=== PATIENT | female | born 1975 | race Caucasian/White ===

== ENCOUNTER 2017-10-28 14:39 | Outpatient (CLI) | payer OTHER, SELFPAY ==
--- NOTE | 2017-10-28 16:06 | DI.REPORT_ITS ---
SYMPTOM/DIAGNOSIS: POLYARTHRALGIA M25.50 RIGHT HAND: The bones are normally mineralized. No bony erosions are seen. There are no significant degenerative changes. IMPRESSION: Negative right hand. RIGHT WRIST: The bones are normally mineralized. No bony erosions are seen. The carpal alignment appears normal. IMPRESSION: Negative right wrist. PELVIS AND RIGHT HIP: The exam is somewhat limited by the patient's body habitus. Hip joint spaces are well maintained. There is mild spurring at the acetabula as well as at the S-I joints. IMPRESSION: No acute abnormality.
[2017-10-30 10:30] LABS: Rheumatoid Factor 8 IU/mL (<12.5)
== END 2017-10-28 14:40 ==
PROVIDERS: PCP Family Medicine; Visit Provider Family Medicine
DX: M79.641 Pain in right hand (principal); M25.531 Pain in right wrist; M25.551 Pain in right hip; R70.0 Elevated erythrocyte sedimentation rate
CPT/HCPCS: 36415; 73110; 73130; 73502; 86431

== ENCOUNTER 2018-09-01 15:53 | Outpatient (CLI) | payer OTHER, SELFPAY ==
[2018-09-01 16:23] LABS: HCT 37.7 % (36.0-46.0); HGB 13.1 g/dL (12.0-15.5); Mean Corp. HGB Concentration 34.7 g/dL (32.0-36.0); Mean Corpuscular Hemoglobin 29.6 pg (27.0-33.0); Mean Corpuscular Volume 85.3 fL (80-95); Mean Platelet Volume 9.7 fL (8.0-11.0); Platelet Count 251 x1000/uL (130-400); RBC 4.42 m/cumm (4.00-5.20); RBC Distribution Width 13.1 % (11.7-14.6); White Blood Cell Count 7.63 k/cumm (4.4-10.8)
[2018-09-01 17:16] LABS: ALT 35 U/L (12-78); AST 26 U/L (15-37); Alkaline Phosphatase 96 U/L (46-116); Anion Gap 10.1 mmol/L (3-11); BUN 15 mg/dL (7-18); Bilirubin, Total 0.5 mg/dL (0.2-1.0); CO2 25.9 mmol/L (21.0-32.0); CREATININE 0.87 mg/dL (0.55-1.02); Calcium 9.4 mg/dL (8.5-10.1); Chloride 100 mmol/L (98-107); Glucose 109 mg/dL (70-100); Magnesium 1.8 mg/dL (1.8-2.4); Potassium 3.8 mmol/L (3.5-5.1); Sodium 136 mmol/L (136-145); TSH 5.72 uIU/mL (0.358-3.74); Total Protein 7.4 g/dL (6.4-8.2)
[2018-09-02 06:23] LABS: Vitamin D 25 Total 23.2 ng/ml (30-100)
== END 2018-09-01 16:13 ==
PROVIDERS: PCP Family Medicine; Visit Provider Registered Nurse
DX: R53.83 Other fatigue (principal); F41.9 Anxiety disorder, unspecified; E03.9 Hypothyroidism, unspecified; N91.2 Amenorrhea, unspecified; E66.9 Obesity, unspecified
CPT/HCPCS: 36415; 80053; 82306; 85027; 83735; 84443

== ENCOUNTER 2018-10-28 10:31 | Outpatient (CLI) | payer OTHER, SELFPAY ==
[2018-10-28 14:06] LABS: TSH 0.13 uIU/mL (0.36-3.74)
== END 2018-10-28 10:51 ==
PROVIDERS: PCP Registered Nurse; Visit Provider Registered Nurse
DX: E03.9 Hypothyroidism, unspecified (principal)
CPT/HCPCS: 36415; 84443

== ENCOUNTER 2019-01-01 04:36 | Emergency (ER) | payer OTHER, SELFPAY ==
[2019-01-01 04:43] VITALS: BP 149/87; PULSE 88; RESP 16; TEMP 36.3; O2SAT 99
--- NOTE | 2019-01-01 04:51 | ED.GENADUL_ITS ---
Discharge Plan Disposition Patient Disposition: HOME Discharge Details Chief Complaint: Orthopedic Clinical Impression: Left shoulder strain Primary Care Provider: SELMA SCANLON ED Provider: Rehan Phillips Home Meds and New Rx's Prescriptions: Continued levothyroxine 125 MCG tablet 125 mcg PO DAILY Qty: 90 RF: 4 ibuprofen 800 MG tablet 800 mg PO TID PRN PRN (Reason: Pain) Qty: 20 RF: 0 acetaminophen [Tylenol] 325 mg Tablet 975 mg PO DIRECTED RF: 0 Discontinued acetaminophen-codeine [Tylenol-Codeine #3] 1 TAB tablet 1 tab PO Q6H PRN PRN (Reason: Pain) Qty: 20 RF: 0 Discharge Instructions Additional Instructions: Continue sling as needed for comfort. May remove and perform range of motion exercises as we discussed 2-3 times per day. Ice to reduce pain and swelling. Continue ibuprofen as needed for discomfort. May use the provided hydrocodone if needed for breakthrough discomfort. Return for worsening discomfort or any other acute concerns. We will refer you to orthopedics for follow-up. Please call the office at [phone] for an appointment time. Medical Decision Making 43-year-old female slipped and fell onto her left arm while getting out of a hot tub 2 days ago. Now with persistent pain despite treatment with lidocaine patch and NSAIDs at home. She has pain with empty can test on exam and would consider strain versus rotator cuff injury. She is referred for x-ray to rule out underlying fracture or malalignment. The radiographs show no evidence of acute bony abnormality. There is nonspecific cortical lucency. We will treat with oral analgesia, sling, and follow-up in orthopedic clinic given the question of rotator cuff injury. [facility] General Mode of arrival: ambulatory . Date/Time Provider Initiated Documentation: 01/01/19 04:37 . Limitations to Documentation: no limitations . Information obtained by: patient . History of Present Illness 43 year old F presents to the emergency department with the chief complaint of Left anterior shoulder pain after slip and fall 2 days ago, described as moderate, Quality is described as dull, and is localized to the left and upper extremity. Patient reports no radiation. Patient started experiencing this hour(s) and it has been constant. Rest improves symptom(s), Movement worsens symptoms . Patient notes no other symptoms.; denies syncope and weakness. Patient did receive the following treatments prior to arrival, NSAID Related Data Home Medications Medication Instructions Recorded Confirmed levothyroxine 125 mcg PO DAILY #90 tab-cap 03/03/16 01/01/19 ibuprofen 800 mg PO TID PRN PRN #20 tablet 06/12/17 01/01/19 acetaminophen [Tylenol] 975 mg PO DIRECTED 01/01/19 01/01/19 Previous Rx's Medication Instructions Recorded ibuprofen 800 mg PO TID PRN PRN #20 tablet 06/12/17 Allergies Allergy/AdvReac Type Severity Reaction Status Date / Time Sulfa (Sulfonamide Allergy Severe eyes were Unverified 01/01/19 04:53 Antibiotics) red and swollen General Stated Complaint: Orthopedic TYLER: 4 Review of Systems Review of Systems Narrative: No other injury. No neck or back pain. No shortness of breath. No numbness or tingling. [facility] Family History Mother No problems noted. Grandfather No problems noted. Social History Smoking/Tobacco Use Status: Never Drug use: Never Substance use type: does not use Do you feel safe at home: Yes Do you feel safe in your relationship?: Yes Exam Narrative Exam Narrative: GEN: awake, alert, oriented 3. Pleasant, well groomed, interactive. HEAD: Normocephalic, atraumatic ENT: Mucous membranes moist, oropharynx unremarkable, External ear exam unremarkable EYES: PERRL, EOMI NECK: Full ROM, no SUMIT, no menigismus CHEST/RESP: Nontender, clear to auscultation bilateral, no wheeze/rhonchi/rales CARDIOVASCULAR: RRR, no murmur, rub jeremiah. 2+ Rad pulse bilateral EXT: Left upper extremity range of motion is limited by pain. Pain is worsened with empty can test. Motor is graded at 5 out of 5 throughout otherwise. Sensation intact. Some mild tenderness of the posterior shoulder above the scapula. No edema, no rash Neuro: Grossly normal neurologic exam, conversant, interactive. Psych: Speech fluent, thoughts congruent, affect normal Course Vital Signs Vital signs: Vital Signs Temperature 36.3 C L 01/01/19 04:43 Pulse 88 01/01/19 04:43 Respiratory Rate 16 01/01/19 04:43 Blood Pressure 149/87 H 01/01/19 04:43 Pulse Oximetry 99 01/01/19 04:43 Temperature 36.3 C L 01/01/19 04:43 Temperature Source Skin 01/01/19 04:43 Pulse 88 01/01/19 04:43 Respiratory Rate 16 01/01/19 04:43 Blood Pressure 149/87 H 01/01/19 04:43 Blood Pressure Position Sitting 01/01/19 04:43 Pulse Oximetry 99 01/01/19 04:43 Oxygen Delivery Method Room Air 01/01/19 04:43 Oxygen Flow Rate 0 01/01/19 04:43 Pain Level 8 01/01/19 04:43
--- NOTE | 2019-01-01 05:19 | DI.RAD_ITS ---
EXAM: XR SHOULDER LT COMPLETE 2+V INDICATION: pain after slip and fall. COMPARISON: No exams were available for comparison TECHNIQUE: 2D digital imaging was performed. FINDINGS: The bony structures are normally mineralized. There is no evidence of a fracture or dislocation. Mil d degenerative changes are evident.
--- NOTE | 2019-01-01 05:28 | DI.VRAD_ITS ---
PROCEDURE INFORMATION: Exam: XR Left Shoulder Exam date and time: 01/01/2019 5:14 AM Clinical history: 43 years old, female; Pain; Shoulder; Left; Additional info: Pain after slip and fall TECHNIQUE: Imaging protocol: XR Left shoulder. Views: 2 or more views. COMPARISON: No relevant prior studies available. FINDINGS: Bones/joints: Small cortical lucency proximal humeral diaphysis only seen in the axillary view. . No significant degenerative change for age. No evidence of acute fracture or malalingment. Soft tissues: Unremarkable. IMPRESSION: No evidence of acute bony abnormality. Nonspecific small cortical lucency proximal humeral diaphysis. Correlate with clinical. Nonemergent MRI scan could be done for further characterization. Dictated and Authenticated by: Francesco Muse MD. Ordering:CARMELO Van MD
[2019-01-01] MEDS: HYDROcodone 5/Acetaminophen 325 TAB PO (05:34)
== END 2019-01-01 05:40 | disposition home or self-care (01) ==
PROVIDERS: Emergency Provider Emergency Medicine; PCP Registered Nurse
DX: S46.912A Strain of unspecified muscle, fascia and tendon at shoulder and upper arm level, left arm, initial encounter (principal); W01.0XXA Fall on same level from slipping, tripping and stumbling without subsequent striking against object, initial encounter
CPT/HCPCS: 99283; 73030

== ENCOUNTER 2019-02-16 11:17 | Outpatient (REF) | payer OTHER, SELFPAY ==
[2019-02-16 22:52] LABS: Hemoglobin A1C 5.2 % (4.5-6.2)
[2019-02-16 22:56] LABS: Glucose 83 mg/dL (74-106); TSH (W/Ref FT4) 2.47 uIU/mL (0.36-3.74)
== END 2019-02-16 11:37 ==
LOC: NCHCN 11:17
PROVIDERS: PCP Registered Nurse; Visit Provider Registered Nurse
DX: E66.9 Obesity, unspecified (principal); R73.9 Hyperglycemia, unspecified; Z83.3 Family history of diabetes mellitus; E03.9 Hypothyroidism, unspecified
CPT/HCPCS: 82947; 83036; 84443

== ENCOUNTER 2020-01-23 18:35 | Emergency (ER) | payer OTHER, SELFPAY ==
[2020-01-23 18:39] VITALS: BP 138/92; PULSE 83; RESP 16; TEMP 36.7; O2SAT 99
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
== END 2020-01-23 19:09 | disposition home or self-care (01) ==
PROVIDERS: Emergency Provider Physician Assistant; PCP Registered Nurse
DX: T23.162A Burn of first degree of back of left hand, initial encounter (principal); X15.3XXA Contact with hot saucepan or skillet, initial encounter
CPT/HCPCS: 99282

== ENCOUNTER 2020-04-18 11:44 | Outpatient (REF) | payer OTHER, SELFPAY ==
[2020-04-18 14:04] LABS: Calculated LDL 133 mg/dL (<100); Cholesterol 209 mg/dL (<200); HDL Cholesterol 64 mg/dL (40-60); TSH 5.17 uIU/mL (0.36-3.74); Triglyceride 60 mg/dL (<150)
[2020-04-18 14:36] LABS: Hemoglobin A1C 5.1 % (<5.7)
== END 2020-04-18 12:04 ==
LOC: NCHCN 11:44
PROVIDERS: PCP Registered Nurse; Visit Provider Registered Nurse
DX: Z00.00 Encounter for general adult medical examination without abnormal findings (principal); E03.9 Hypothyroidism, unspecified; R73.9 Hyperglycemia, unspecified
CPT/HCPCS: 80061; 83036; 84443

== ENCOUNTER 2020-05-01 00:31 | Outpatient (CLI) | payer OTHER, SELFPAY ==
--- NOTE | 2020-05-01 08:30 | DI.MAMMO_ITS ---
EXAM: MG MAMMO SCREENING CLINICAL HISTORY: SCREENING, Z12.39 TECHNIQUE: Bilateral full field digital CC and MLO mammographic images were obtained with 3D tomosyn thesis and utilizing computer aided detection (CAD). COMPARISON: None. This is a baseline examination. FINDINGS: Masses/Architectural Distortion: None seen. Microcalcifications: No suspicious pleomorphic-type are seen. Skin Thickening/Nipple Retraction: None. IMPRESSION: 1. No significant interval change with no specific features of malignancy noted. 2. Unless there is more urgent need, screening mammography is recommended, as per [place] [employer] guidelines. BI-RADS Category 1 - Negative Breast Density - Category B - Scattered areas of fibroglandular density Breast density category C or D implies that the patient has dense breast tissue. Dense breast tissue is very common and is not abnormal but dense breast tissue can make it harder to find cancer on a ma mmogram. Also, dense breast tissue may increase their breast cancer risk. This information about the result of the mammogram report was provided to the patient to raise their awareness. Use this report when you speak with the patient about their risks for breast cancer, which includes their family hist ory. At that time, you may recommend for more screening tests (Ultrasound or MRI) as they might be us eful based on their risk. A negative radiographic report should not delay biopsy if a dominant or clinically suspicious mass is present. Up to ten percent of cancers are not identified on mammography. A negative report may reinforce clinical impression. Adenosis and dense breasts may obscure an underlying neoplasm. False positive reports average 6 to 10%. Patient will receive a letter notifying them of these results.
== END 2020-05-01 00:32 | disposition home or self-care (01) ==
LOC: DI 00:31
PROVIDERS: PCP Registered Nurse; Visit Provider Registered Nurse
DX: Z12.31 Encounter for screening mammogram for malignant neoplasm of breast (principal)
CPT/HCPCS: 77063; 77067

== ENCOUNTER 2020-07-13 14:44 | Outpatient (REF) | payer OTHER, SELFPAY ==
[2020-07-13 13:33] LABS: TSH 1.75 uIU/mL (0.36-3.74)
== END 2020-07-13 14:45 | disposition home or self-care (01) ==
LOC: NCHCN 14:44
PROVIDERS: PCP Registered Nurse; Visit Provider Registered Nurse
DX: E03.9 Hypothyroidism, unspecified (principal)
CPT/HCPCS: 84443

== ENCOUNTER 2021-04-25 09:27 | Outpatient (REF) | payer OTHER, SELFPAY ==
--- NOTE | 2021-04-25 08:15 | PAPFT_PTH ---
PATIENT: Alanna Souza LOC: [facility] U#:[id number] AGE/SX: 46/F ROOM: RE04/25/[address]: Massiel Martinez : 1975 BED: DIS: 04/25/2021 SPEC #: [id number] RECD: 04/25/21 17:59 STATUS: CASSIUS REWilfredo #: [id number] DONNIE: 04/25/21 08:[address]: Massiel Martinez DEPT: ON LICENSE OF [facility] Cytology RECD BY: Kaylan Granado Tissues: 1 - CX/ENDOCX FOR PAP SMEARS Procedures: PAP THIN PREP/UVM Screening HPV DNA PROBE Comments: [id number] (CHLAMYDIA/GC)
[2021-04-25 15:22] LABS: TSH 5.96 uIU/mL (0.36-3.74)
[2021-04-26 15:01] LABS: Chlamydia Result Negative (Negative); GC Result Negative (Negative)
== END 2021-04-25 09:28 | disposition home or self-care (01) ==
LOC: NCHCN 09:27
PROVIDERS: PCP Registered Nurse; Visit Provider Registered Nurse
DX: Z12.4 Encounter for screening for malignant neoplasm of cervix (principal); Z11.51 Encounter for screening for human papillomavirus (HPV); E03.9 Hypothyroidism, unspecified
CPT/HCPCS: 87491; 87591; 88142; 84443; 87624

== ENCOUNTER 2021-06-12 02:24 | Outpatient (CLI) | payer OTHER, SELFPAY ==
[2021-06-12 11:29] LABS: Source Nasal/Nares
[2021-06-12 14:04] LABS: COVID-19 PCR Negative (Negative)
== END 2021-06-12 02:25 | disposition home or self-care (01) ==
LOC: LBO 02:24
PROVIDERS: PCP Registered Nurse; Visit Provider Surgery
DX: Z20.822 Contact with and (suspected) exposure to COVID-19 (principal)
CPT/HCPCS: 87635

== ENCOUNTER 2021-06-14 08:06 | Day surgery (SDC) | payer OTHER, SELFPAY ==
--- NOTE | 2021-06-13 11:33 | COLE_ITS ---
Colonoscopy Report Date of procedure: 06/14/21 Pre-op diagnosis general: screening Post-op diagnosis procedure note: other (diverticula/colon polyps) Surgeon: Rosibel Cam Anesthesia Type: General:No Airway Estimated blood loss (mL): 1 Pathology: other Complications: None Disposition: same day Prep: Miralax/Dulcolax Retraction Time: 12 mins Procedure Description: After informed consent was obtained the patient was taken to the procedure room and placed in a left decubitous position. Monitors were applied and a time out was done. The patients name, date of , procedure, allergies to medications and metal in their body was reviewed. The patient was then sedated. Once sedated and comfortable a rectal exam was done. External exam shows old hemorrhoidal tags Internal exam revealed a normal sphincter tone and no palpable masses. The scope was then introduced and retrofelexed. No internal hemorrhoids were identified. The scope was then advanced to the cecum withoutdifficulty. The TI and appendiceal orifice were identified. The prep was be BPS?3 in all segments for a total of 9. The scope was then slowly retracted over 13 minutes back into the rectum. She had some mild irritation in the cecum which is probably due to bowel prepping. There was some arterial blood present. There is no signs of any active bleeding. Biopsy was taken of this area. There is no erythema edema or masses in the cecum. She does have a small polyp in the cecum. This was removed with a cold biopsy forcep. All specimen is retrieved and no bleeding is noted. She does have moderate diverticula confined to the sigmoid colon. There is no signs of active bleeding or infection. The scope was removed and the patient was woken up and taken back to Same day surgery in stable condition. The patient tolerated the procedure well and there were no immediate comp lications. Follow up: The patient should follow up in 7 years, path pd, unless they develop changes in bowel habits or other new gastrointestinal complaints.
--- NOTE | 2021-06-13 11:37 | PDOC.DSDIS_ITS ---
Discharge Plan Disposition Patient Disposition: HOME Condition: Good Discharge Details Reason For Visit: colon scope Attending Provider: Rosibel Cam Primary Care Provider: Massiel Martinez Home Meds and New Rx's Prescriptions: No Action levothyroxine 175 mcg capsule 175 mcg PO DAILY 0RF fluticasone propionate [Flonase Allergy Relief] 50 mcg/actuation spray,suspension 1 spray intranasal BID 0RF Rx Instructions: administer into each nostril albuterol sulfate [Ventolin HFA] 90 mcg/actuation HFA aerosol inhaler 2 puff inhalation Q6H PRN0RF cholecalciferol (vitamin D3) 125 mcg (5,000 unit) capsule 125 mcg PO DAILY 0RF ibuprofen 800 MG tablet 800 mg PO TID PRN PRN (Reason: Pain) Qty: 20 0RF acetaminophen [Tylenol] 325 mg Tablet 975 mg PO DIRECTED 0RF trazodone 50 mg tablet 50 mg PO HS 0RF sertraline 100 mg tablet 100 mg PO DAILY 0RF Discharge Instructions Additional Instructions: DSU Colonoscopy Post- Op Instructions Instructions for Everyone who is given Anesthesia: For your safety, please do the following for the next twenty-four (24) hours: *Do Not operate a motor vehicle (car, truck, motorcycle, etc.) *Do Not drink alcoholic beverages or use any recreational drugs for the first 24 hours or while taking pain medications. The medications in your body may have a reaction that can be dangerous. *Do Not make any important decisions or sign any important papers. Findings:Moderate diverticula. Make sure you are moving your bowels on a regular basis and not straining to go to the bathroom. -very small polyp Follow up: My office will send a letter in 2 to 3 weeks time detailing as to what type of polyp it was, and when we want you to repeat your colonoscopy. 1. No lifting over 20 pounds or strenuous activity for the first 24 hours after your procedure. After 24 hours there are no restrictions on your activity but you may feel fatigued for a few days. 2. After you arrive home you may have a light meal and return to your normal diet as you can tolerate it without feeling sick to your stomach. 3. You may have a bloated, gaseous feeling in your belly (abdomen) after a colonoscopy. Passing gas and belching will help. Walking or lying down on your left side with your knees flexed may relieve the discomfort. Call the office at [phone] (Office) or [phone] (Hospital) right away if you notice any of the following: a.Vomiting of blood or ?coffee ground stools?. b.Rectal bleeding 1Tbsp, blood clots or continuous bleeding. c.Severe belly (abdominal) pain. d.A hard distended belly (abdomen) and an inability to pass gas. 4. Please don?t expect to have a normal BM (bowel movement) for 2-3 days after your procedure. 5. If there are questions regarding the findings of your procedure, please contact your doctor 6. If you are unable to contact your doctor with a problem, contact the hospital at [phone]. 7. Continue all your regular medications unless directed otherwise. I understand the above instructions and have no questions. Signature of Patient or Adult Escort Name of Responsible Adult Escort Signature of Nurse Date/Time Activity:: see above Diet:: see above Discharge Orders Discharge Orders: Discharge Order (Routine); Ordered 06/13/21 Ordered By: Rosibel Cam
[2021-06-14 08:18] VITALS: BP 141/96; PULSE 74; RESP 16; TEMP 36.4; O2SAT 98
[2021-06-14] MEDS: Lactated Ringers 1,000 ML 80 ML IV (08:38)
--- NOTE | 2021-06-14 09:54 | W.ANESPRE ---
General Info Date of Service Date Performed: 06/14/21 Height: 5 ft 1.5 in Weight: 123.1 kg Body Mass Index (BMI): 50.4 Surgical Procedure: Operation Date: 06/14/21 09:35 Proposed Procedure Side Surgeon lavonne Cam, DO Meds Allergies and Home Medications Allergies Allergy/AdvReac Type Severity Reaction Status Date / Time Sulfa (Sulfonamide Allergy Severe eyes were Verified 06/14/21 08:17 Antibiotics) red and swollen Home Medication Medication Instructions Recorded ibuprofen 800 mg tablet 800 mg PO TID PRN PRN #20 tab 06/12/17 acetaminophen 325 mg tablet 975 mg PO DIRECTED 01/01/19 (Tylenol) sertraline 100 mg tablet 100 mg PO DAILY 01/23/20 trazodone 50 mg tablet 50 mg PO HS 01/23/20 albuterol sulfate 90 mcg/actuation 2 puff INHALATION Q6H PRN 05/20/21 aerosol inhaler (Ventolin HFA) cholecalciferol (vitamin D3) 125 125 mcg PO DAILY 05/20/21 mcg (5,000 unit) capsule fluticasone propionate 50 1 spray INTRANASAL BID 05/20/21 mcg/actuation nasal spray,suspension (Flonase Allergy Relief) levothyroxine 175 mcg capsule 175 mcg PO DAILY 05/20/21 Current Visit Medications: Current Medications Generic Name Dose Route Start Last Admin Trade Name Freq PRN Reason Stop Dose Admin Hyoscyamine Sulfate 0.125 mg 06/13/21 10:35 Hyoscyamine 0.125 Mg Sl/Oral/Chew SL 06/14/21 16:00 DIRECTED PRN Ringer's Solution 1,000 mls @ 80 mls/hr 06/14/21 06:00 06/14/21 08:38 IV 06/27/21 23:59 80 mls/hr INFUSION GRAY Administration IV Miscellaneous Supplies 1 each 06/14/21 06:00 Iv Access IV 06/27/21 23:59 DIRECTED GRAY Ondansetron HCl 4 mg 06/13/21 10:35 Ondansetron 4 Mg/2 Ml Vial IVP 06/14/21 16:00 Q4H PRN PRN Nausea / Vomiting Sodium Chloride 0 ml 06/14/21 06:00 Normal Saline Flush 10 Ml Syr IV 06/27/21 23:59 PRN PRN Sodium Chloride 0 ml 06/14/21 06:00 Normal Saline 10 Ml Vial IJ 06/27/21 23:59 DIRECTED PRN Sterile Water 0 ml 06/14/21 06:00 Water,Injection,Sterile 10 Ml Vial IJ 06/27/21 23:59 DIRECTED PRN PFSH Active Problems Active Problems: Problem Status Onset Code Elevated blood pressure reading without diagnosis of hypertension R03.0 Medical History Medical History Asthma Depression Hypothyroidism Insomnia Tobacco Smoking/Tobacco Use Status: Never Alcohol Alcohol Intake: never Substance Use Substance use: Never Substance use type: does not use Vital Signs and Lab Results Vital Signs Most Recent Vital Signs in EMR: Most Recent Vital Signs Temp Pulse Resp BP Pulse Ox 36.4 C L 74 16 141/96 H 98 06/14/21 08:18 06/14/21 08:18 06/14/21 08:18 06/14/21 08:18 06/14/21 08:18 Lab Results Result Diagrams: 06/14/21 07:35 06/14/21 07:35 Blood Type / Crossmatch: No Data to Display Complete Blood Count: No Data to Display Complete Metabolic Panel: No Data to Display Liver Function Panel: No Data to Display Coagulation Panel: No Data to Display Cardiac Panel: No Data to Display Arterial Blood Gas: No Data to Display Venous Blood Gas: No Data to Display Pancreas Panel: No Data to Display Thyroid Panel: No Data to Display Infectious Disease: Coronavirus (COVID-19)(PCR) Negative (Negative) 06/12/21 08:30 06/12/21 Coronavirus 2019 Source Nasal/Nares 06/12/21 08:30 06/12/21 Blood Cultures: No Data to Display Toxicology Panel: No Data to Display Panel: No Data to Display Anesthesia Assessment and Plan Anesthesia History Personal History: No History of Anesthesia Complications Family History: No Family History of Anesthesia Complications Exercise Tolerance Exercise Tolerance: Metabolic Equivalents>4 Pertinent Negatives Pertinent Negatives: No Symptoms of GERD (Reflux sx's 4-5x's a week - pepcid), No Major Cardiovascular Symptoms or Complaints, No Major Pulmonary Symptoms or Complaints and No History of CVA/TIA Cardiac & Pulmonary Exam Cardiac Exam: Normal S1/S2 Heart Sounds Pulmonary Exam: Clear Bilateral Breath Sounds Implantable Cardiac Device Does patient have a Pacemaker or an ICD?: No Airway Exam Known Difficult Airway: No Mallampati Class: 3 Mouth Opening: Narrow (< 3cm) Thyromental Distance: Less than 3 cm Neck Range of Motion: Full ROM Neck Circumference: Thick Teeth Condition: Normal Dentition ASA Classification ASA Score: ASA 3 Emergency Case?: No NPO Status NPO Status: NPO Clears >2 hours, Solids >8 hours Status Status: Not Per Patient Anesthesia Plan Resuscitation Status: Full Code Anesthesia Technique: General Anesthesia Airway Planned: Natural Airway Monitors Used: Standard Monitors
[2021-06-14 09:58] VITALS: BMI 50.4
--- NOTE | 2021-06-14 10:30 | BOWEL_PTH ---
PATIENT: Alanna Souza LOC: [facility] U#:[id number] AGE/SX: 46/F ROOM: RE06/14/[address]: Rosibel Cam : 1975 BED: DIS: 06/14/2021 SPEC #: [id number] RECD: 06/14/21 12:44 STATUS: CASSIUS REQ #: [id number] DONNIE: 06/14/21 10:[address]: Rosibel Cam DEPT: Surgical Specimen RECD BY: Kaylan Granado ENTERED: 06/14/21 12:46 SP TYPE: Bowel OTHR DR: Massiel Martinez Tissues: 1 - BIOPSY BOWEL 2 - BIOPSY BOWEL Procedures: GROSS AND MICRO LEVEL 4 Comments: [id number]
[2021-06-14 10:38] VITALS: BP 136/92; PULSE 72; RESP 16; TEMP 36.5; O2SAT 99
--- NOTE | 2021-06-14 10:40 | W.ANESPOSTOP ---
Postoperative Evaluation Date, Time and Location Date Performed: 06/14/21 Time Performed: 10:40 Patient Location: Day Surgery Unit Vital Signs Most Recent Imported Vital Signs: Most Recent Vital Signs Temp Pulse Resp BP Pulse Ox 36.4 C L 74 16 141/96 H 98 06/14/21 08:18 06/14/21 08:18 06/14/21 08:18 06/14/21 08:18 06/14/21 08:18 Most Recent Manually Entered Vital Signs: Adult Blood Pressure: 136/92 Heart Rate: 69 Respirations: 12 Oxygen Saturation (%): 98 Temperature (C): 36.3 C Pain Score (0-10 Scale): 0 Pain Score Most Recent Pain Score: Most Recent Pain Score Pain Level 0 06/14/21 08:18 Assessment Mental Status: Awake (Alert & Oriented to Patient Baseline) Airway and Respiratory Function: Patent airway with normal (patient baseline) respiratory exam Cardiovascular Function: Hemodynamically Stable Hydration Status: Adequately Hydrated Nausea & Vomiting: No Nausea or Vomiting Pain: Pt. Denies Any Pain Peripheral Nerve Block: Patient did not receive a nerve block
[2021-06-14 10:41] VITALS: BP 136/92; PULSE 69; RESP 12; TEMPC 36.3; O2SAT 98
[2021-06-14 11:07] VITALS: BP 137/72; PULSE 64; RESP 16; TEMP 36.6; O2SAT 100
== END 2021-06-14 11:23 | disposition home or self-care (01) ==
LOC: SUR 08:07
PROVIDERS: PCP Registered Nurse; Visit Provider Surgery
PROC: 0DJD8ZZ Inspection of Lower Intestinal Tract, Via Natural or Artificial Opening Endoscopic (ICD-10-PCS; CPT 45378; principal; 2021-06-14 09:30)
DX: Z12.11 Encounter for screening for malignant neoplasm of colon (principal); K63.5 Polyp of colon; K57.30 Diverticulosis of large intestine without perforation or abscess without bleeding; K63.89 Other specified diseases of intestine
CPT/HCPCS: 45380; 80053; 83690; 88305; 85025; 86140; J2001; J2250

== ENCOUNTER 2021-06-18 00:43 | Outpatient (CLI) | payer OTHER, SELFPAY ==
--- NOTE | 2021-06-18 12:13 | DI.MAMMO_ITS ---
Exam(s) MAMMO SCREENING EXAM: MAMMO SCREENING CLINICAL HISTORY: SCREENING, Z12.39 TECHNIQUE: Mammograms were interpreted according to the usual protocol including computer analysis w [employer] CAD system, tomosynthesis and C-view imaging. COMPARISON: 2020 FINDINGS: The breasts are composed of scattered fibroglandular densities, Breast Density category B. No suspicious masses or suspicious microcalcifications are seen. No skin thickening or abnormal axillary lymph nodes are seen. There has been no significant change from prior exams. IMPRESSION: BI-RADS Category 1, Negative mammogram Yearly screening mammography is recommended. Breast Density - Category B, scattered fibroglandular densities. A negative radiographic report should not delay biopsy if a dominant or clinically suspicious mass is present. Up to ten percent of cancers are not identified on mammography. A negative report may reinforce clinical impression. Adenosis and dense breasts may obscure an underlying neoplasm. False positive reports average 6 to 10%. Patient will receive a letter notifying them of these results.
== END 2021-06-18 01:03 ==
PROVIDERS: PCP Registered Nurse; Visit Provider Registered Nurse
DX: Z12.31 Encounter for screening mammogram for malignant neoplasm of breast (principal)
CPT/HCPCS: 77063; 77067

== ENCOUNTER 2021-06-20 18:41 | Outpatient (REF) | payer OTHER, SELFPAY ==
[2021-06-20 17:04] LABS: TSH 1.33 uIU/mL (0.36-3.74)
== END 2021-06-20 18:42 | disposition home or self-care (01) ==
LOC: NCHCN 18:41
PROVIDERS: PCP Registered Nurse; Visit Provider Registered Nurse
DX: E03.9 Hypothyroidism, unspecified (principal)
CPT/HCPCS: 84443

== ENCOUNTER 2021-09-29 08:29 | Emergency (ER) | payer OTHER, SELFPAY ==
[2021-09-29 08:35] VITALS: BP 156/95; PULSE 67; RESP 16; TEMP 36.6; O2SAT 98
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
[2021-09-29] MEDS: oxyCODONE 5 MG TAB PO (09:04)
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
== END 2021-09-29 10:25 | disposition home or self-care (01) ==
PROVIDERS: Emergency Provider Physician Assistant; PCP Registered Nurse
DX: S20.212A Contusion of left front wall of thorax, initial encounter (principal); V18.9XXA Unspecified pedal cyclist injured in noncollision transport accident in traffic accident, initial encounter
CPT/HCPCS: 99284; 71046; 71100

== ENCOUNTER 2021-11-26 14:47 | Outpatient (REF) | payer OTHER, SELFPAY ==
[2021-11-26 15:07] LABS: Anion Gap 5.8 mmol/L (3-11); BUN 18 mg/dL (7-18); CO2 29.2 mmol/L (21.0-32.0); CREATININE 0.9 mg/dL (0.55-1.02); Calcium 9.1 mg/dL (8.5-10.1); Chloride 104 mmol/L (98-107); Estimated GFR 79.35 (mL/min/1.73m2); Glucose 124 mg/dL (74-106); Potassium 4.1 mmol/L (3.5-5.1); Sodium 139 mmol/L (136-145)
== END 2021-11-26 14:48 | disposition home or self-care (01) ==
LOC: NCHCN 14:47
PROVIDERS: PCP Registered Nurse; Visit Provider Registered Nurse
DX: Z00.00 Encounter for general adult medical examination without abnormal findings (principal); R53.83 Other fatigue; E66.01 Morbid (severe) obesity due to excess calories; Z68.41 Body mass index [BMI] 40.0-44.9, adult
CPT/HCPCS: 80048

== ENCOUNTER 2022-01-21 15:50 | Emergency (ER) | payer OTHER, SELFPAY ==
[2022-01-21 15:58] VITALS: BP 115/69; PULSE 85; RESP 16; O2SAT 96
--- NOTE | 2022-01-21 17:57 | W.ED.GENAD ---
Discharge Plan Disposition Patient Disposition: HOME Condition: Stable Discharge Details Clinical Impression: Laceration of left leg Primary Care Provider: Massiel Martinez ED Provider: Kaylan Hurt Home Meds and New Rx's Prescriptions: Continued levothyroxine 175 mcg capsule 175 mcg PO DAILY fluticasone propionate [Flonase Allergy Relief] 50 mcg/actuation spray,suspension 1 spray intranasal BID Rx Instructions: administer into each nostril albuterol sulfate [Ventolin HFA] 90 mcg/actuation HFA aerosol inhaler 2 puff inhalation Q6H PRN cholecalciferol (vitamin D3) 125 mcg (5,000 unit) capsule 125 mcg PO DAILY oxycodone 5 mg tablet 5 mg PO TID PRN (Reason: pain) Qty: 7 0RF ibuprofen 800 MG tablet 800 mg PO TID PRN PRN (Reason: Pain) Qty: 20 0RF acetaminophen [Tylenol] 325 mg Tablet 975 mg PO DIRECTED trazodone 50 mg tablet 50 mg PO HS sertraline 100 mg tablet 100 mg PO DAILY Discharge Instructions Instructions: Laceration (ED) Additional Instructions: keep wound clean and dry trim steri strips as they peel back return with spreading redness, fever, worsening pain Referrals: Massiel Martinez, STUDENT EDUCATION SPECIALIST [Primary Care Provider] - Discharge Data Discharge Date/Time-TO BE ENTERED AT DEPARTURE: 01/21/22 18:16 Medical Decision Making Patient tolerated procedure without incident wound cleansed copiously prior to skin affix and Steri-Strips Return precautions discussed and patient expressed understanding Medical Records Medical records reviewed: Yes I reviewed the patient's medical records. Lab Data Lab results reviewed: Yes I reviewed the patient's lab results. ECG Data Prior ECG tracings: available for review HPI General Date/Time Provider Initiated Documentation: 01/21/22 17:33. HPI Narrative: This 46-year-old female presents with laceration to left leg and a piece of paper at work. Denies any additional injuries. Tetanus up-to-date. Denies any strength or sensation change. Occurred approximately an hour and half prior to arrival Related Data Home Medications Medication Instructions Recorded Confirmed ibuprofen 800 mg tablet 800 mg PO TID PRN PRN Pain #20 tabs 06/12/17 09/29/21 acetaminophen 325 mg tablet 975 mg PO DIRECTED 01/01/19 09/29/21 (Tylenol) sertraline 100 mg tablet 100 mg PO DAILY 01/23/20 09/29/21 trazodone 50 mg tablet 50 mg PO HS 01/23/20 09/29/21 albuterol sulfate 90 mcg/actuation 2 puff inhalation Q6H PRN 05/20/21 09/29/21 aerosol inhaler (Ventolin HFA) cholecalciferol (vitamin D3) 125 125 mcg PO DAILY 05/20/21 09/29/21 mcg (5,000 unit) capsule fluticasone propionate 50 1 spray intranasal BID 05/20/21 09/29/21 mcg/actuation nasal spray,suspension (Flonase Allergy Relief) levothyroxine 175 mcg capsule 175 mcg PO DAILY 05/20/21 09/29/21 oxycodone 5 mg tablet 5 mg PO TID PRN pain #7 tabs 09/29/21 Previous Rx's Medication Instructions Recorded ibuprofen 800 mg tablet 800 mg PO TID PRN PRN Pain #20 tabs 06/12/17 oxycodone 5 mg tablet 5 mg PO TID PRN pain #7 tabs 09/29/21 Allergies Allergy/AdvReac Type Severity Reaction Status Date / Time Sulfa (Sulfonamide Allergy Severe eyes were Verified 09/29/21 08:41 Antibiotics) red and swollen General Stated Complaint: Laceration TYLER: 5 Review of Systems Narrative: Reassessment obtained x3 and negative aside from medication HPI PFSH All Active Problems (Updated 01/21/22 @ 18:11 by RENUKA Jarrett) Laceration of left leg (Acute) Hyperplastic colon polyp (Acute) Diverticula of colon (Acute) moderate sigmoid colon only CE 2021. Repeat in 2031. Elevated blood pressure reading without diagnosis of hypertension (Acute) Medical History (Updated 01/21/22 @ 18:11 by RENUKA Jarrett) Asthma Depression Hypothyroidism Insomnia Surgical History (Updated 06/19/21 @ 15:20 by Chandrika Hill RN) History of colonoscopy with polypectomy (~06/14/21) Family History Mother No problems noted. Grandfather No problems noted. Social History Smoking/Tobacco Use Status: Never Smoking risk assessment performed?: Yes Alcohol Intake: never Drug use: Never Substance use type: does not use Do you feel safe at home: Yes Do you feel safe in your relationship?: Yes Exam Extrem Other: Approximately 1 inch superficial laceration to left lower extremity, neurovascularly intact Course Vital Signs Vital signs: Vital Signs Pulse 85 01/21/22 15:58 Respiratory Rate 16 01/21/22 15:58 Blood Pressure 115/69 01/21/22 15:58 Pulse Oximetry 96 01/21/22 15:58 Pulse 85 01/21/22 15:58 Respiratory Rate 16 01/21/22 15:58 Blood Pressure 115/69 01/21/22 15:58 Blood Pressure Position Sitting 01/21/22 15:58 Pulse Oximetry 96 01/21/22 15:58 Oxygen Delivery Method Room Air 01/21/22 15:58 Oxygen Flow Rate 0 01/21/22 15:58 Procedures Laceration Laceration 1: Site: lower extremity Side (If applicable): left Description: linear Depth: simple, single layer Pre-repair: irrigated extensively Skin layer closed with: other (Skin affix approximate wound with 2 Steri-Strips)
== END 2022-01-21 18:16 | disposition home or self-care (01) ==
PROVIDERS: Emergency Provider Physician Assistant; PCP Registered Nurse
DX: S81.812A Laceration without foreign body, left lower leg, initial encounter (principal); W26.8XXA Contact with other sharp object(s), not elsewhere classified, initial encounter; Y99.0 Civilian activity done for income or pay
CPT/HCPCS: 99281; 99282

== ENCOUNTER 2022-05-16 13:45 | Outpatient (REF) | payer OTHER, SELFPAY ==
[2022-05-16 14:26] LABS: Hemoglobin A1C 5.2 % (<5.7)
[2022-05-16 14:37] LABS: Calculated LDL 127 mg/dL (<100); Cholesterol 206 mg/dL (<200); HDL Cholesterol 62 mg/dL (40-60); TSH 11.56 uIU/mL (0.36-3.74); Triglyceride 88 mg/dL (<150)
[2022-05-16 14:48] LABS: Vitamin D 25 Total 16.8 ng/mL (30-100)
== END 2022-05-16 13:46 | disposition home or self-care (01) ==
LOC: NCHCN 13:45
PROVIDERS: PCP Registered Nurse; Visit Provider Registered Nurse
DX: R03.0 Elevated blood-pressure reading, without diagnosis of hypertension (principal); R53.83 Other fatigue; E03.9 Hypothyroidism, unspecified; E66.01 Morbid (severe) obesity due to excess calories
CPT/HCPCS: 80061; 82306; 83036; 84443

== ENCOUNTER 2022-06-20 01:36 | Outpatient (CLI) | payer OTHER, SELFPAY ==
--- NOTE | 2022-06-20 | DI.MAMMO_ITS ---
Exam(s) MAMMO SCREENING EXAM: MAMMO SCREENING CLINICAL HISTORY: SCREENING, Z12.39 TECHNIQUE: Bilateral full field digital CC and MLO mammographic images were obtained with 3D tomosyn thesis and utilizing computer aided detection (CAD). COMPARISON: Available for comparison. FINDINGS: Masses/Architectural Distortion: None seen. Microcalcifications: No suspicious pleomorphic-type are seen. Skin Thickening/Nipple Retraction: None. IMPRESSION: 1. No significant interval change with no specific features of malignancy noted. 2. Unless there is more urgent need, screening mammography is recommended, as per [employer] guidelines. BI-RADS Category 1 - Negative Breast Density - Category B - Scattered areas of fibroglandular density Breast density category C or D implies that the patient has dense breast tissue. Dense breast tissue is very common and is not abnormal but dense breast tissue can make it harder to find cancer on a ma mmogram. Also, dense breast tissue may increase their breast cancer risk. This information about the result of the mammogram report was provided to the patient to raise their awareness. Use this report when you speak with the patient about their risks for breast cancer, which includes their family hist ory. At that time, you may recommend for more screening tests (Ultrasound or MRI) as they might be us eful based on their risk. A negative radiographic report should not delay biopsy if a dominant or clinically suspicious mass is present. Up to ten percent of cancers are not identified on mammography. A negative report may reinforce clinical impression. Adenosis and dense breasts may obscure an underlying neoplasm. False positive reports average 6 to 10%. Patient will receive a letter notifying them of these results.
== END 2022-06-20 01:56 ==
LOC: DI 01:36
PROVIDERS: PCP Registered Nurse; Visit Provider Registered Nurse
DX: Z12.31 Encounter for screening mammogram for malignant neoplasm of breast (principal)
CPT/HCPCS: 77063; 77067

== ENCOUNTER 2022-07-24 11:41 | Outpatient (REF) | payer OTHER, SELFPAY ==
[2022-07-24 14:49] LABS: HCT 36.1 % (36.0-46.0); HGB 12.2 g/dL (11.2-15.7); MCH 28.6 pg (27.0-33.0); MCHC 33.8 % (32.0-36.0); MCV 85 fL (80-95); MPV 10.4 fL (8.0-11.0); Platelet Count 230 10^3/uL (130-400); RBC 4.26 10^6/uL (3.93-5.22); RDW 13.1 % (11.7-14.6); RDW-SD 39.7 fL; WBC 6.12 10^3/uL (4.4-10.8)
[2022-07-24 15:27] LABS: ALT 26 U/L (14-59); AST 18 U/L (15-37); Albumin 3.7 g/dL (3.4-5.0); Alkaline Phosphatase 87 U/L (46-116); Anion Gap 7.8 mmol/L (3-11); BUN 15 mg/dL (7-18); Bilirubin, Total 0.6 mg/dL (0.2-1.0); CO2 26.2 mmol/L (21.0-32.0); CREATININE 0.8 mg/dL (0.55-1.02); Chloride 108 mmol/L (98-107); Estimated GFR 90.83 (mL/min/1.73m2); Glucose 101 mg/dL (74-106); Potassium 3.8 mmol/L (3.5-5.1); Sodium 142 mmol/L (136-145); Total Protein 7.3 g/dL (6.4-8.2)
== END 2022-07-24 11:42 | disposition home or self-care (01) ==
LOC: NCHCN 11:41
PROVIDERS: PCP Registered Nurse; Visit Provider Registered Nurse
DX: E03.9 Hypothyroidism, unspecified (principal); E66.01 Morbid (severe) obesity due to excess calories
CPT/HCPCS: 80053; 85027; 84443

== ENCOUNTER 2022-08-18 15:01 | Outpatient (REF) | payer OTHER, SELFPAY ==
[2022-08-18 16:20] LABS: Vitamin D 25 Total 28.3 ng/mL (30-100)
== END 2022-08-18 15:02 | disposition home or self-care (01) ==
LOC: NCHCN 15:01
PROVIDERS: PCP Registered Nurse; Visit Provider Registered Nurse
DX: E55.9 Vitamin D deficiency, unspecified (principal)
CPT/HCPCS: 82306

== ENCOUNTER → 2023-06-09 00:39 | Outpatient (CLI) | payer OTHER, SELFPAY ==
--- NOTE | 2023-06-09 07:49 | DI.RAD_ITS ---
Exam(s) XR FOOT RT COMPLETE EXAM: XR FOOT RT COMPLETE CLINICAL HISTORY: Right foot pain,m79.671. TECHNIQUE: 2D digital imaging was performed of the right foot. Three images were obtained. AP, obl ique and lateral views were obtained. COMPARISON: No exams were available for comparison FINDINGS: BONES: No acute fracture is present. No bony destructive lesion is seen. There is a moderate-sized pl raciel calcaneal spur. There is a small enthesophyte at the posterior calcaneus. JOINTS: No dislocation present. Mild degenerative changes are seen in the midfoot. SOFT TISSUE: Normal. IMPRESSION: 1. Calcaneal spurs. 2. Mild degenerative changes in the midfoot. DATA REPOSITORY: RADIATION DOSE DELIVERED:
== END ==
PROVIDERS: PCP Registered Nurse; Visit Provider Podiatrist
DX: M79.671 Pain in right foot (principal)
CPT/HCPCS: 73630

== ENCOUNTER 2023-07-27 18:16 | Outpatient (REF) | payer OTHER, SELFPAY ==
[2023-07-27 21:35] LABS: Calculated LDL 114 mg/dL (<100); Cholesterol 191 mg/dL (<200); HDL Cholesterol 67 mg/dL (40-60); Triglyceride 51 mg/dL (<150)
[2023-07-27 21:47] LABS: Vitamin D 25 Total 21.9 ng/mL (30-100)
== END 2023-07-27 18:17 | disposition home or self-care (01) ==
LOC: NCHCN 18:16
PROVIDERS: PCP Registered Nurse; Visit Provider Internal Medicine
DX: E03.9 Hypothyroidism, unspecified (principal); E66.01 Morbid (severe) obesity due to excess calories; E55.9 Vitamin D deficiency, unspecified
CPT/HCPCS: 80061; 82306; 84443

== ENCOUNTER 2023-10-27 15:13 | Outpatient (REF) | payer OTHER, SELFPAY ==
[2023-10-27 21:55] LABS: TSH 0.03 uIU/Ml (0.36-3.74); Vitamin D 25 Total 25.9 ng/mL (30-100)
== END 2023-10-27 15:14 | disposition home or self-care (01) ==
LOC: NCHCN 15:13
PROVIDERS: PCP Registered Nurse; Visit Provider Family Medicine
DX: E03.9 Hypothyroidism, unspecified (principal); E55.9 Vitamin D deficiency, unspecified
CPT/HCPCS: 82306; 84443

== ENCOUNTER 2024-01-27 18:44 | Outpatient (REF) | payer OTHER, SELFPAY ==
[2024-01-27 21:35] LABS: TSH 0.02 uIU/mL (0.36-3.74); Vitamin D 25 Total 26.8 ng/mL (30-100)
== END 2024-01-27 18:45 | disposition home or self-care (01) ==
LOC: NCHCN 18:44
PROVIDERS: PCP Registered Nurse; Visit Provider Internal Medicine
DX: E03.9 Hypothyroidism, unspecified (principal); E55.9 Vitamin D deficiency, unspecified
CPT/HCPCS: 82306; 84443

== ENCOUNTER 2024-04-25 16:06 | Outpatient (REF) | payer OTHER, SELFPAY ==
[2024-04-25 22:03] LABS: TSH 0.15 uIU/mL (0.36-3.74)
== END 2024-04-25 16:07 | disposition home or self-care (01) ==
LOC: NCHCN 16:06
PROVIDERS: PCP Registered Nurse; Visit Provider Internal Medicine
DX: E03.9 Hypothyroidism, unspecified (principal); E55.9 Vitamin D deficiency, unspecified
CPT/HCPCS: 82306; 84443

== ENCOUNTER 2025-01-01 14:31 | Emergency (ER) | payer OTHER, SELFPAY ==
[2025-01-01 14:35] VITALS: BP 135/79; PULSE 84; RESP 16; TEMP 36.9; O2SAT 96
--- NOTE | 2025-01-01 14:54 | W.ED.GENAD ---
Discharge Plan Disposition Patient Disposition: Home Condition: Fair Discharge Details Clinical Impression: Dysuria Primary Care Provider: Unknown,Unknown ED Provider: Lior Ball Home Meds and New Rx's Prescriptions: New phenazopyridine [Pyridium] 200 mg tablet 200 mg PO TID PRNQty: 20 0RF No Action Bariatric Multivitamins 45 mg iron- 800 mcg-120 mcg capsule 1 cap PO DAILY Rx Instructions: Theragran levothyroxine 175 mcg capsule 175 mcg PO DAILY fluticasone propionate [Flonase Allergy Relief] 50 mcg/actuation spray,suspension 1 spray intranasal BID Rx Instructions: administer into each nostril albuterol sulfate [Ventolin HFA] 90 mcg/actuation HFA aerosol inhaler 2 puff inhalation Q6H PRN cholecalciferol (vitamin D3) 125 mcg (5,000 unit) capsule 125 mcg PO DAILY acetaminophen [Tylenol] 325 mg Tablet 975 mg PO DIRECTED trazodone 50 mg tablet 50 mg PO HS sertraline 100 mg tablet 100 mg PO DAILY Discharge Instructions Instructions: Dysuria (ED) Referrals: Primary Care Provider [Outside] - 3 days HPI General Date/Time Provider Initiated Documentation: 01/01/25 14:40. HPI Narrative: This is a 49-year-old female with a couple of days of pelvic cramping, dysuria, urinary frequency. She has a history of UTIs and believes that she may have obtained another. No hematuria. No clear triggering factors. No abnormal vaginal discharge or bleeding. No fevers or rash. Patient suspects she may have had a fever but took Tylenol and is uncertain about this. No cough or shortness of breath. No diarrhea constipation. No recent injuries. Related Data Home Medications ?Medication ?Instructions ?Recorded ?Confirmed acetaminophen 325 mg tablet 975 mg PO DIRECTED 01/01/19 01/01/25 (Tylenol) sertraline 100 mg tablet 100 mg PO DAILY 01/23/20 01/01/25 trazodone 50 mg tablet 50 mg PO HS 01/23/20 01/01/25 albuterol sulfate 90 mcg/actuation 2 puff inhalation Q6H PRN 05/20/21 01/01/25 aerosol inhaler (Ventolin HFA) cholecalciferol (vitamin D3) 125 125 mcg PO DAILY 05/20/21 01/01/25 mcg (5,000 unit) capsule fluticasone propionate 50 1 spray intranasal BID 05/20/21 01/01/25 mcg/actuation nasal spray,suspension (Flonase Allergy Relief) levothyroxine 175 mcg capsule 175 mcg PO DAILY 05/20/21 01/01/25 [id number] 45 mg-folic 1 cap PO DAILY 06/09/23 01/01/25 acid 800 mcg-vit K 120 mcg capsule (Bariatric Multivitamins) phenazopyridine 200 mg tablet 200 mg PO TID PRN #20 tabs 01/01/25 (Pyridium) Previous Rx's ?Medication ?Instructions ?Recorded phenazopyridine 200 mg tablet 200 mg PO TID PRN #20 tabs 01/01/25 (Pyridium) Allergies Allergy/AdvReac Type Severity Reaction Status Date / Time Sulfa (Sulfonamide Allergy Severe eyes were Verified 01/01/25 14:40 Antibiotics) red and swollen General Stated Complaint: Urinary TYLER: 3 Review of Systems All systems reviewed & are unremarkable except as noted in HPI and below Constitutional Constitutional: Reports system reviewed and no additional complaints, except as documented, Denies fever(s), Denies weakness and Denies weight loss Eyes Eyes: Denies blurry vision ENT Ears, Nose, Mouth, and Throat: Denies sore throat Cardiovascular Cardiovascular: Denies chest pain, Denies palpitations and Denies dyspnea Respiratory Respiratory: Denies cough, Denies dyspnea and Denies wheezing Gastrointestinal Gastrointestinal: Denies abdominal pain, Denies diarrhea, Denies nausea and Denies vomiting Genitourinary Genitourinary: Denies hematuria, Denies dysuria and Reports other (Urinary frequency, burning, pelvic cramping) Musculoskeletal Musculoskeletal: Denies back pain, Denies arthralgias and Denies numbness Neurologic Neurologic: Denies numbness and Denies weakness Psychiatric Psychiatric: Denies suicidal ideation Endocrine Endocrine: Denies palpitations Allergic/Immunologic Allergic/Immunologic: Denies wheezing Exam Const General: no acute distress and well groomed HENMT Mouth: oral mucosae normal and moist mucous membranes Throat: posterior oropharynx normal Eyes Conjunctivae: conjunctivae normal Sclera: sclerae normal Neck Neck: full ROM and No JVD Resp Effort & Inspection: normal respiratory effort Auscultation: clear to auscultation bilaterally Cardio Rate: regular rate Rhythm: regular rhythm Heart Sounds: no murmurs GI Palpation: soft and nontender Skin General skin exam: no rashes or lesions noted Neuro General: patient alert and patient oriented x3 Extrem General: normal to inspection and full ROM Psych Appearance: grossly normal Mental Status: mental status grossly normal Speech and Movement: speech and movement normal Affect: normal affect Thought Process: normal Course Vital Signs Vital signs: Vital Signs Temperature 36.9 C 01/01/25 14:35 Pulse 84 01/01/25 14:35 Respiratory Rate 16 01/01/25 14:35 Blood Pressure 135/79 01/01/25 14:35 Pulse Oximetry 96 01/01/25 14:35 Temperature 36.9 C 01/01/25 14:35 Temperature Source Oral 01/01/25 14:35 Pulse 84 01/01/25 14:35 Respiratory Rate 16 01/01/25 14:35 Blood Pressure 135/79 01/01/25 14:35 Blood Pressure Position Sitting 01/01/25 14:35 Pulse Oximetry 96 01/01/25 14:35 Oxygen Delivery Method Room Air 01/01/25 14:35 Oxygen Flow Rate 0 01/01/25 14:35 Pain Level 5 01/01/25 14:35 Medical Decision Making This is a 49-year-old female presenting to the emergency department with a chief complaint of urinary symptoms. The patient was seen and examined by me. Old charts were reviewed and nursing notes were reviewed. Recent visits were due to de Quervain's tenosynovitis and are unrelated. Urinalysis was sent. This revealed only 3-5 white cells. Culture was added on. Etiology of the patient's urinary symptoms is unclear at this time. Perhaps a culture will be illustrative. I will start her on Pyridium. She is to be rechecked by her primary care in a couple of days. Abdominal exam is benign. The patient is afebrile and nontoxic. I do not feel further testing is indicated at this time. PFSH All Active Problems (Updated 01/01/25 @ 16:41 by Lior Ball MD) Dysuria (Acute) De Quervain's tenosynovitis, left (Acute) Injection: 06/30/2024 Vitamin D deficiency (Acute) Ganglion of foot, right (Acute) Degenerative joint disease, right, foot (Acute) Achilles tendon contracture, bilateral (Acute) Plantar fasciitis (Acute) Depression (Chronic) Insomnia (Acute) Asthma (Chronic) Hyperplastic colon polyp (Acute) Diverticula of colon (Acute) moderate sigmoid colon only CE 2021. Repeat in 2031. Elevated blood pressure reading without diagnosis of hypertension (Acute) Medical History Osteochondroma of left fibula (04/23/16) Hypothyroidism Surgical History [place] [facility] [place] History of colonoscopy with polypectomy (~06/14/21) Family History Mother No problems noted. Grandfather No problems noted. Social History Smoking/Tobacco Use Status: Never Smoking risk assessment performed?: Yes Alcohol Intake: never Drug use: Never Substance use type: does not use Current gender identity: female Do you feel safe at home: Yes Do you feel safe in your relationship?: Yes
[2025-01-01 15:43] LABS: Glucose Negative (Negative)
[2025-01-01 15:51] LABS: C & S Indicated? No; WBC 0-2 HPF (0-5)
[2025-01-01] MEDS: Phenazopyridine 100 MG TAB 200 MG PO (16:54)
[2025-01-01 16:58] VITALS: BP 140/77; PULSE 80; RESP 18; TEMP 37.1; O2SAT 98
== END 2025-01-01 17:00 | disposition home or self-care (01) ==
PROVIDERS: Emergency Medicine; Emergency Provider Emergency Medicine
DX: R30.0 Dysuria (principal)
CPT/HCPCS: 99283 ×2; 81025; 81003; 81015; 87086